=== PATIENT | female | born 1950 | race Caucasian/White ===

== ENCOUNTER 2019-02-25 19:41 | Emergency (ER) | payer MEDICARE, BC, OTHER ==
[2019-02-25] MEDS: IBUPROFEN 600 MG TAB PO (20:26)
[2019-02-25] MEDS: LIDOCAINE 1% (MDV) 20 ML INJ SC (20:54)
[2019-02-25] MEDS: STERILE WATER 1L IRRIG BTL IRR (21:05)
[2019-02-25] MEDS: AMOXICILLIN/CLAV 875 MG TAB PO (21:44)
== END 2019-02-25 22:16 | disposition home or self-care (01) ==
LOC: FTE 19:41
DX: S61.411A Laceration without foreign body of right hand, initial encounter (principal); W54.0XXA Bitten by dog, initial encounter; Y92.89 Other specified places as the place of occurrence of the external cause; Z48.02 Encounter for removal of sutures; Z87.891 Personal history of nicotine dependence
CPT/HCPCS: 12002; 99283-25